=== PATIENT | male | born 1985 | race Asian ===

== ENCOUNTER 2020-04-16 07:12 | Day surgery (SDC) | payer OTHER ==
[2020-04-14 14:59] LABS: Absolute Lymphocytes (CBC) 1.9 K/uL (0.7-4.9); Basophils % 0.9 % (0-1.3); Hematocrit 42.8 % (39.6-49.0); Lymphocytes % 28.6 % (15.3-44.8); MPV 7.7 fL (7.6-11.3); RBC Red Blood Cell Count 4.52 M/uL (4.33-5.43)
[2020-04-14 15:10] LABS: Amylase 73 U/L (25-115); Lipase 169 U/L (73-393)
[2020-04-14 15:15] LABS: ALT/SGPT 50 U/L (12-78); AST/SGOT 18 U/L (15-37); Albumin 4.2 g/dL (3.4-5.0); Alkaline Phosphatase 57 U/L (45-117); BUN Blood Urea Nitrogen 12 mg/dL (7-18); Bicarbonate 33 mmol/L (21-32); Bilirubin Direct < 0.1 mg/dL (0-0.2); Bilirubin Total 0.3 mg/dL (0.2-1.0); Glucose Level 103 mg/dL (74-106); Potassium 4.3 mmol/L (3.5-5.1); Protein, Total 7.9 g/dL (6.4-8.2); Sodium Level 145 mmol/L (136-145)
[2020-04-16] MEDS ORDERED: BUPIVACAINE 0.5% PF 10 ML VIAL ONE (07:36)
[2020-04-16] MEDS ORDERED: Ringers Lactate 1,000 ML IV ONE (07:53)
[2020-04-16] MEDS: CEFOXITIN/SWI 1gm 1 GM/10 ML SYR ONE ×2 (08:45→09:05)
[2020-04-16] MEDS ORDERED: propofoL 200 MG/20 ML VIAL IV ONE (08:59)
[2020-04-16] MEDS ORDERED: FENTANYL CITR 250 MCG/5 ML ONE (09:00)
[2020-04-16] MEDS ORDERED: GLYCOPYRROLATE 0.2 MG/ML SYR ONE ×2 (09:00→09:44)
[2020-04-16] MEDS ORDERED: FENTANYL CITR 100 MCG/2 ML ONE (09:00)
[2020-04-16] MEDS ORDERED: ROCURONIUM 50 MG/5 ML VIAL IV ONE (09:00)
[2020-04-16] MEDS ORDERED: ONDANSETRON 4 MG/2 ML VIAL ONE (09:00)
[2020-04-16] MEDS ORDERED: MIDAZOLAM HCL 2 MG/2 ML INJ ONE (09:00)
[2020-04-16] MEDS ORDERED: dexAMETHasone 10 MG/ML VIAL ONE (09:00)
--- NOTE | 2020-04-16 09:29 | P.BOP ---
Preoperative diagnosis: symptomatic cholelithiasis, RUQ abd pain, GB polyps Postoperative diagnosis: same Primary procedure: Laparoscopic cholecystectomy Blending Kettle Tender: DOROTHY GRIFFITHS (DRAMATIC CRITIC) Estimated blood loss: <10cc Specimen: gb Findings: as above Anesthesia: General Complications: None Transferred to: Recovery Room Condition: Good
[2020-04-16] MEDS ORDERED: EPHEDRINE SULF 50 MG/ML VIAL ONE (09:40)
[2020-04-16] MEDS ORDERED: KETOROLAC 30 MG/ML INJ ONE (09:44)
[2020-04-16] MEDS ORDERED: NEOSTIGMINE 1 MG/ML -5 ML ONE (09:44)
[2020-04-16] MEDS ORDERED: MORPHINE 10 MG/ML VIAL ONE (09:49)
--- NOTE | 2020-04-16 10:10 | DS ---
Diagnoses: Symptomatic cholelithiasis, right upper quadrant abdominal pain, gallbladder polyps. Procedure: Laparoscopic cholecystectomy. Disposition: Home. Activity: As tolerated. No heavy lifting. Plan: Follow up in my office in 1 week. Call for appointment at [phone]. Keep area dry for 48 deepti rs, then may shower. Keep Steri-Strip intact. Medications: Include Tylenol No.3 q.4 hours p.r.n. pain, Bactrim DS p.o. b.i.d. CLINT/DIPTI Voice ID: [id number] Report ID: [id number]
--- NOTE | 2020-04-16 10:10 | OP ---
Date of Procedure: 04/16/2020 Surgeon: Daniel Mcconnell MD Mobile Application Engineer: KATERIN Obrien. Preoperative Diagnoses: Symptomatic cholelithiasis, right upper quadrant abdominal pain, gallbladder polyps. Postoperative Diagnoses: Symptomatic cholelithiasis, right upper quadrant abdominal pain, gallbladde r polyps. Procedure: Laparoscopic cholecystectomy. Specimen: Gallbladder. Finding: As above. Anesthesia: General plus local. Complications: None. Estimated Blood Loss: Less than 10 cc. Indications: This is the case of a 35-year-old patient with above diagnosis. The benefits, alternat yoandy, and risks of laparoscopic possible open cholecystectomy were fully explained, which include, bu t not limited to infection, bleeding, damage to adjacent structures, anesthesia complication, choledo cholithiasis, bile leak, pancreatitis, WI, and even . He also understands this may not relieve any symptoms. He might need more than one surgical intervention. He understood, signed a consent. Procedure In Detail: The patient was brought to the operating room, placed in supine position. Anes thesia was done without complication. Abdominal area was prepped and draped in a sterile fashion. M arcaine 0.5% injected for local anesthetic followed by sharp incision of the skin in the infraumbilic al region. Incision was carried down to fascia, which was opened under direct vision. Peritoneum wa s encountered, opened under direct vision. Vicryl #1 placed inside the fascia. Micah trocar was ca refully introduced. Pneumoperitoneum was obtained. I placed 3 more trocars, 5 mm each one of them, 1 in the epigastric area, 2 in the right upper quadrant using same technique which was consisted of l ocal anesthetic, sharp incision of the skin and introduction of the trocars under direct vision. Thi s allowed me to put a grasper in the fundus of the gallbladder, another grasper in the infundibulum r etracting the gallbladder in the inferolateral fashion exposing the triangle of Calot and obtaining c ritical view. The cystic duct and cystic artery were clearly isolated, freed circumferentially, and a connection between those and the gallbladder was clearly identified. I proceeded to ligate those b y using at least 3 clips proximal, 1 clip distal, ligation in middle. Same was done with the cystic artery. No bile leak, no bleeding. The gallbladder was removed from liver using Bovie cauterizer an d removed from abdominal cavity using EndoCatch through the umbilical incision. The area was inspect ed once again. No bile leak, no bleeding. At that moment, I proceeded to remove the trocars under d irect vision. Deflated pneumoperitoneum. Closed the fascia with #1 Vicryl. Irrigated the subcutane ous tissue, closed with 3-0 chromic and the skin in subcuticular fashion with 3-[address] nacho-Strips on top. The patient tolerated the procedure well. The patient was sent to recovery in st able condition. CLINT/DIPTI Voice ID: [id number] Report ID: [id number]
[2020-04-16 10:16] VITALS: O2SAT 100
[2020-04-16 12:00] VITALS: BP 134/87
[2020-04-16 12:09] VITALS: TEMP 97
== END 2020-04-16 11:30 | disposition home or self-care (01) ==
LOC: OR 07:12
PROVIDERS: ATTEND Surgery
PROC: 0FT44ZZ Resection of Gallbladder, Percutaneous Endoscopic Approach (ICD-10-PCS; principal; 2020-04-16 09:00)
DX: K80.20 Calculus of gallbladder without cholecystitis without obstruction (principal); Z20.822 Contact with and (suspected) exposure to COVID-19
CPT/HCPCS: 85025; 80048; 36415; 82150; 80076; 88304; 83690; 47562; U0003; J2704; J2250; J3010; J1100; J2710; J7120; J2405